=== PATIENT | female | born 1985 | race Caucasian/White ===

== ENCOUNTER 2024-03-05 16:07 | Emergency (ER) | payer OTHER, SELFPAY ==
[2024-03-05 16:14] VITALS: BP 140/92; PULSE 88; O2SAT 98
[2024-03-05 16:34] VITALS: BP 137/85; PULSE 79; RESP 16; TEMP 37.2; O2SAT 100; BMI 25.0
--- NOTE | 2024-03-05 16:35 | ED.EYEPROB ---
HPI - Eye Problem General Chief complaint: Eye Problems Stated complaint: R eye pain after using new contacts Time Seen by Provider: 03/05/24 18:03 Source: patient Mode of arrival: ambulatory Limitations: no limitations History of Present Illness ED Provider: ANGELINE CHÁVEZ PA-C HPI Narrative: 38-year-old female with no significant past medical history presents to the ED today for evaluation of right eye pain since noon yesterday. Patient reports putting in new contacts yesterday. Approximately 1 hour after, began to have irritation/foreign body sensation in her right eye. Reports waking up this morning with her eye crusted shut. Endorses clear discharge from the eye and difficulty opening it. Admits to blurred vision secondary to excessive tearing. Denies headache, dizziness, fever or chills, nausea or vomiting. Denies blunt trauma or injury to the eye. Related Data Previous Rx's ?Medication ?Instructions ?Recorded ciprofloxacin HCl 0.3 % eye drops 1 drp ophthalmic (eye) QID 5 days 03/05/24 #10 mL Allergies Allergy/AdvReac Type Severity Reaction Status Date / Time No Known Allergies Allergy Verified 03/05/24 16:37 Review of Systems Review of Systems: Constitutional: No fever, chills, fatigue, night sweats, weight changes ENT/Mouth: No ear pain, hearing loss, nasal congestion, sinus pain, rhinorrhea, sore throat Eyes: No swelling, redness, vision changes, discharge, +eye irritation Cardio: No chest pain, palpitations, WHIPPLE, orthopnea, peripheral edema Pulm: No SOB, cough, sputum, wheezing, dyspnea, hemoptysis GI: No nausea, vomiting, hematemesis, abdominal pain, diarrhea, constipation, hematochezia, melena : No irregular bleeding, dysuria, frequency, urgency, hesitancy, hematuria, flank pain, urinary flow changes, urinary incontinence or retention MSK: No back pain, neck pain, joint pain, myalgias Skin: No lesions, rashes Neuro: No weakness, numbness, paresthesias, LOC, dizziness, headache Psych: No anxiety/panic, depression, SI/HI, AH/VH All other systems reviewed and are negative. [facility] Past Medical History Attestation statement: The following information was validated with the patient. Source: old records reviewed and nursing notes reviewed Social History Social History Advance Directives: No Advance Directives Information Provided: No Do you have a plan to hurt others: No Plan Physical Exam Vital Signs: Vital Signs: Last Vital Signs Temp 98.2 F 03/05/24 18:58 Pulse 87 03/05/24 18:58 Resp 17 03/05/24 18:58 BP 136/91 H 03/05/24 18:58 Pulse Ox 100 03/05/24 18:58 O2 Del Method Room Air 03/05/24 18:58 BMI result Body Mass Index 25.0 Vital signs stable, afebrile General: Well appearing, in no acute distress. Skin: Warm, dry, intact. No rashes or lesions. Head: Normocephalic, atraumatic. EENT: Hearing is intact b/l. EOM intact. Moist mucous membranes.? + Mild periorbital swelling to right eye. No enophthalmous or exopthalmous. EOMs intact without pain or entrapment. PERRLA. Positive photophobia. No obvious foreign body or abrasion. Minimal conjunctival injection with excessive tearing hearing no hazy cornea. IOP OD 17, IOP OS 16. On tetracaine exam there is central reuptake noted on cornea to suggest abrasion. No noted foreign body. No vertical abrasions. On eyelid eversion, no noted foreign body. Neck: Supple without LAD. FROM. Trachea midline.? Cardiac: Chest wall symmetric. RRR Lungs: Normal respiratory effort without accessory muscle use. CTA bilaterally. Psych: Appropriate mood and affect. Responds appropriately to questions. Course Course Course Narrative: This is a Rapid Medical Examination (RME) performed by Keegan Rg PA-C in triage. Full HPI, ROS, assessment and treatment plan per primary provider in the Main ED. 38 y/o female presents to the ER for evaluation of right eye pain, foreign body sensation, clear drainage after taking her contacts out yesterday. She feels like there is something stuck in the eye. Unable to open eye fully because of pain. Eye is injected, unable to fully open and examined in triage. Plan: Tetracaine and fluorescein exam Reevaluation(s) Reevaluation #1: 1910 -- corneal abrasion noted to right eye. no fb requiring removal. tdap updated. Given patient wears contact lenses, will prescribe ciprofloxacin eye drops for treatment. Advised her to follow up with Ophthalmology. Referral provided. Patient has remained stable throughout ED visit today. Discussed worrisome signs and symptoms and when to return to the ED. All questions answered at this time. Patient is agreeable with disposition and stable for discharge. Medications Administered Discontinued Medications Generic Name Dose Route Start Last Admin Trade Name Freq PRN Reason Stop Dose Admin Diphtheria/Tetanus/Acell Pertussis 0.5 ml 03/05/24 18:42 03/05/24 18:52 Diphth,Pertus(Acell),Tet Adult 0.5 Ml Syringe IM 03/05/24 18:43 0.5 ml .ONCE ONE Administration Fluorescein Sodium 1 strip 03/05/24 16:37 03/05/24 17:58 Fluorescein Sodium Strip EYE-RIGHT 03/05/24 16:38 1 strip ONCE ONE Administration Tetracaine HCl 1 drop 03/05/24 16:37 03/05/24 17:58 Tetracaine Hcl/Pf 0.5% Oph Talia 4 Ml Drops EYE-LEFT 03/05/24 16:38 1 drop ONCE ONE Administration Medical Decision Making Medical Decision Making MDM Narrative: 38-year-old female with no significant past medical history presents to the ED today for evaluation of right eye pain since noon yesterday. Vital signs stable, afebrile. She is nontoxic appearing in no acute distress. On exam of right eye, there is mild periorbital swelling. No enophthalmous or exopthalmous. EOMs intact without pain or entrapment. PERRLA. Positive photophobia. No obvious foreign body or abrasion. Minimal conjunctival injection with excessive tearing hearing no hazy cornea. IOP OD 17, IOP OS 16. On tetracaine exam there is central reuptake noted on cornea to suggest abrasion. No noted foreign body. No vertical abrasions. On eyelid eversion, no noted foreign body. Differential diagnosis includes corneal abrasion, corneal ulceration, corneal FB, conjunctivitis. Lower suspicion for iritis, keratitis. Unlikely pre-septal cellulitis, orbital cellulitis, acute angle closure glaucoma. Plan for tetracaine/fluorescein examination, IOP, and disposition. Differential Diagnosis Differential Diagnoses: The differential diagnosis associated with the presentation includes as above. Admission/Observation Not indicated. External Record Review External record reviewed: Inpatient record Prescription Management I considered prescription management with: Antibiotic (erythromycin ointment) Social Determinants Patient?s care significantly limited by Social Determinants of Health including: Other Social Determinant of Health Critical Care Time Critical Care Time Critical Care Time: No Discharge Plan Discharge Clinical Impression: Corneal abrasion Qualifiers: Encounter type: initial encounter Laterality: right Qualified Code(s): S05.01XA - Injury of conjunctiva and corneal abrasion without foreign body, right eye, initial encounter Patient Disposition: Home, Self-Care Instructions: Corneal Abrasion (ED) Additional Instructions: You have an abrasion on your right cornea. Your tetanus vaccination was update today. Ciprofloxacin antibiotic eye drops have been sent to your pharmacy. Instill two drops into your right eye four times daily for 7 days. I recommend you take 600mg ibuprofen every 6 hours or Tylenol 650mg every 6 hours as needed for pain. If needed, you can alternate these medications so that you take one medication every 3 hours. For example, at noon take ibuprofen, then at 3pm take Tylenol, then at 6pm take ibuprofen. Please do not wear your contacts until you have completed the antibiotics and have followed up with your eye doctor. You have been provided with a referral to an eye doctor. Call them to establish care. They will not call you. Make sure to change to a new set of contacts, do not wear your old ones. Return with new or worsening symptoms. In the case of an emergency call 911. Prescriptions: New ciprofloxacin HCl 0.3 % drops 1 drp ophthalmic (eye) QID 5 Days Qty: 10 0RF Rx Instructions: administer while awake Referrals: Wesly Peng [Physician] - Interventions: ED Discharge Assessment Last Done: 03/05/24 18:58 Discharge Date/Time: 03/05/24 19:06 Print Language: Congolese
[2024-03-05] MEDS: Tetracaine HCl/PF 0.5% Oph Sol 4 ML DROPS 1 DROP EYE-LEFT (17:58)
[2024-03-05] MEDS: Fluorescein Sodium STRIP 1 STRIP EYE-RIGHT (17:58)
[2024-03-05] MEDS: Diphth,Pertus(ACell),Tet Adult 0.5 ML SYRINGE IM (18:52)
[2024-03-05 18:58] VITALS: BP 136/91; PULSE 87; RESP 17; TEMP 36.8; O2SAT 100
== END 2024-03-05 19:06 | disposition home or self-care (01) ==
LOC: HO.ED 19:05
PROVIDERS: Emergency Provider Emergency Medicine
DX: T15.01XA Foreign body in cornea, right eye, initial encounter (principal); W44.9XXA Unspecified foreign body entering into or through a natural orifice, initial encounter; H57.11 Ocular pain, right eye; Y93.9 Activity, unspecified; Y92.9 Unspecified place or not applicable; Y99.9 Unspecified external cause status
CPT/HCPCS: 90471; 90715; 99282; 99284